=== PATIENT | female | born 1980 | race Caucasian/White ===

== ENCOUNTER 2021-07-12 09:46 | Observation (INO) ==
[2021-07-12] MEDS ORDERED: diazePAM 10 MG/2 ML SYRINGE IM STA (09:58)
[2021-07-12] MEDS ORDERED: diazePAM 10 MG/2 ML SYRINGE IVP STA (10:11)
[2021-07-12 10:40] LABS: Basophils # 0.1 K/mcL (0.0-0.2); Basophils % 0.5 %; Eosinophils # 0.2 K/mcL (0.0-0.6); Eosinophils % 2.3 %; Hematocrit 39.8 % (35.3-44.9); Hemoglobin 12.9 g/dL (11.5-15.4); Immature Granulocytes % 0.4 % (0-4); Lymphocytes # 1.3 K/mcL (0.6-4.6); Lymphocytes % 13.8 %; Mean Corpuscular HGB Conc 32.4 g/dL (31.6-35.5); Mean Corpuscular Hemoglobin 29.3 pg (28.0-33.3); Mean Corpuscular Volume 90.5 fL (83.0-100.0); Mean Platelet Volume 10.9 fL (9.4-12.4); Monocytes # 0.5 K/mcL (0.0-1.3); Monocytes % 5.8 %; Neutrophils # 7.2 K/mcL (1.6-8.9); Platelet Count 301 K/mcL (140-400); Red Cell Distribution Width 12.1 % (11.5-14.5); Segmented Neutrophils % 77.2 %; White Blood Count 9.3 K/mcL (4.3-11.1)
[2021-07-12 10:59] LABS: Alanine Aminotransferase 43 Units/L (7-52); Albumin/Globulin Ratio 1.4 (1.1-2.2); Alkaline Phosphatase 55 Units/L (34-104); Amylase 20 Units/L (29-103); Aspartate Amino Transferase 24 Units/L (13-39); BUN/Creatinine Ratio 18 (6-26); Bilirubin,Direct 0.1 mg/dL (0.0-0.2); Bilirubin,Indirect 0.2 mg/dL (0.0-1.0); Bilirubin,Total 0.3 mg/dL (0.3-1.0); Blood Urea Nitrogen 12 mg/dL (6-20); Calcium 9.2 mg/dL (8.6-10.3); Carbon Dioxide 25 mEq/L (23-29); Chloride 105 mEq/L (98-107); Globulin 2.8 g/dL (2.4-3.5); Glucose 105 mg/dL (70-105); Lipase 10 Units/L (11-82); Osmolality,Calculated 284 (280-300); Potassium 3.8 mEq/L (3.5-5.1); Sodium 137 mEq/L (136-145); Total Protein 6.8 g/dL (6.4-8.9); eGFR For African Americans > 60 (> 60); eGFR For Non-African Americans > 60 (> 60)
[2021-07-12] MEDS ORDERED: Ondansetron 4 MG/2 ML VIAL IVP PRN (11:12)
[2021-07-12] MEDS ORDERED: Naloxone 0.4 MG/ML INJ IVP PRN (11:12)
[2021-07-12] MEDS ORDERED: 0.9 % Sodium Chloride 1,000 ML IVC SCH (11:15)
[2021-07-12 11:38] LABS: INR 1.2; Prothrombin Time 13.2 Seconds (9.4-12.1)
[2021-07-12 11:40] LABS: Activated Partial Thrombo Time 37.9 Seconds (26.0-36.0)
[2021-07-12] MEDS ORDERED: Lidocaine -MPF 2% 5 ML VIAL ONE (13:19)
[2021-07-12 14:03] VITALS: BP 113/72; PULSE 73; TEMP 98.6; O2SAT 96
== END 2021-07-12 14:35 | disposition home or self-care (01) ==
LOC: 3ANU 09:46 → EMEROOARM 09:46 → 3ANU 12:34
PROVIDERS: ADMIT Internal Medicine; ATTEND Internal Medicine